=== PATIENT | male | born 1995 | race Hispanic/Latino ===

== ENCOUNTER 2017-01-01 23:07 | Emergency (ER) | payer OTHER ==
[~2017-01-01] VITALS: Ht 175.3 cm; Wt 67.6 kg
[~2017-01-01 23:07] MED LIST: ATIVAN2 MG PO; NOHOMEMEDS
[2017-01-02 00:23] LABS: HEMATOCRIT 40.5 % (38.0-50.0); MCH 33.6 PG (29.0-34.0); MCHC 35.6 G/DL (30.0-36.0); MCV 94.6 FL (86-99); MEAN PLAT.VOLUME 9.9 uM^3 (9.0-12.4); PLATELET COUNT 139 K/uL (156-360); RBC DIS.WIDTH-CV 13.6 % (11.8-14.6); RED BLOOD COUNT 4.28 M/uL (4.00-5.50)
[2017-01-02 00:34] LABS: CHLORIDE 106 mEq/L (99-109); SODIUM 147 mEq/L (136-147)
[2017-01-02 00:36] LABS: GLUCOSE 101 mg/dL (70-99)
[2017-01-02 00:37] LABS: ANION GAP 15 MEQ/L (2-14)
[2017-01-02 00:38] LABS: TOTAL BILIRUBIN 1.6 mg/dL (0.0-1.0)
[2017-01-02 00:39] LABS: SERUM ETHYL ALCOHOL 412 mg/dL
[2017-01-02 00:40] LABS: ALKALINE PHOSPHATASE 98 IU/L (3-129); GFR ESTIMATE (CALCULATED) > 59 mL/min/
[2017-01-02 00:41] LABS: UREA NITROGEN (BUN) 3 mg/dL (9-23)
[2017-01-02 01:19] LABS: ADD MIUA? YES; BILIRUBIN NEGATIVE; BLOOD SMALL; COLOR YELLOW ((YELLOW)); GLUCOSE (STRIP) NEGATIVE; KETONES NEGATIVE; LEUKOCYTES NEGATIVE; NITRITE NEGATIVE; PROTEIN (STRIP) 30; SPECIFIC GRAVITY 1.006 (1.000-1.030)
[2017-01-02 01:25] LABS: AMPHETAMINE NEGATIVE (500 ng/mL); BARBITURATES NEGATIVE (200 ng/mL); BENZODIAZEPINES NEGATIVE (150 ng/mL); COCAINE NEGATIVE (150 ng/mL); INTERNAL CONTROLS VALID? YES; METHADONE NEGATIVE (200 ng/mL); METHAMPHETAMINE NEGATIVE (500 ng/mL); OPIATES (MORPHINE) NEGATIVE (100 ng/mL); OXYCODONE NEGATIVE (100 ng/mL); PHENCYCLIDINE NEGATIVE (25 ng/mL); PROPOXYPHENE NEGATIVE (300 ng/mL); THC CANNABINOIDS NEGATIVE (50 ng/mL); TRICYCLIC ANTIDEPRESSANTS NEGATIVE (300 ng/mL)
[2017-01-02 01:27] LABS: BACTERIA NONE SEEN /HPF; EPITHELIAL CELLS NONE SEEN /HPF; MUCUS NONE SEEN /LPF; RED BLOOD CELLS 0-5 /HPF (0-5); WHITE BLOOD CELLS 0-5 /HPF (0-5)
[2017-01-02 13:41] VITALS: BP 124/73
== END 2017-01-02 13:42 | disposition home or self-care (01) ==
LOC: EME → EDBD 23:07 → EME 23:07
PROVIDERS: Emergency Medicine
DX: F32.9 Major depressive disorder, single episode, unspecified (principal); F10.129 Alcohol abuse with intoxication, unspecified; M54.5 Low back pain; F17.200 Nicotine dependence, unspecified, uncomplicated; Y90.8 Blood alcohol level of 240 mg/100 ml or more
CPT/HCPCS: 80053; 81003; 85027; 90837; 99281; 99285; G0480